=== PATIENT | male | born 1990 | race Two or more races ===

== ENCOUNTER 2025-01-28 20:29 | Emergency (ER) | payer OTHER ==
[~2025-01-28] VITALS: Ht 172.7 cm; Wt 75.7 kg
[2025-01-28 20:53] VITALS: BP 100/66; O2SAT 97
[2025-01-28] MEDS ORDERED: NORFLEX100MG PO (20:55)
[2025-01-28] MEDS ORDERED: DEXAMETHASONE SODIUM PHOSPHATE 4 MG/ML VIAL IM STA (21:48)
[2025-01-28] MEDS ORDERED: DEXAMETHASONE SODIUM PHOSPHATE 4 MG/ML VIAL ONE (22:26)
== END 2025-01-28 22:29 | disposition home or self-care (01) ==
LOC: ER 20:30
DX: M54.50 Low back pain, unspecified (principal); Z88.6 Allergy status to analgesic agent